=== PATIENT | male | born 1955 | race American Indian/Alaskan Native ===

== ENCOUNTER 2017-04-24 10:14 | Inpatient (IN) | payer MEDICAID ==
[2017-04-24] MEDS ORDERED: Ondansetron 4 MG/2 ML SDV IVPUSH ONE (10:46)
[2017-04-24] MEDS ORDERED: HYDROmorphone 0.5 MG/0.5 ML Syringe IVPUSH ONE (10:46)
[2017-04-24] MEDS ORDERED: Sodium Chloride 0.9% 1,000 ML IV SCH (11:00)
--- NOTE | 2017-04-24 11:31 | CR ---
Heart size within normal limits. Emphysematous change. No focal consolidation. Orogastric which are w ithin normal limits. Nodularity right apex likely is due to the right first rib and would recommend a lordotic view follow-up. This could be performed nonemergently. No dilated loops of large or small b owel. Moderate fecal residual.
[2017-04-24] MEDS ORDERED: HYDROmorphone 1 MG/ML Syringe IVPUSH ONE ×2 (12:21→13:18)
--- NOTE | 2017-04-24 12:29 | EDM.PDOC ---
ED HPI GENERAL MEDICAL PROBLEM - General Chief Complaint: Abdominal Pain Stated Complaint: ABDOMINAL PAIN VIA [facility] Time Seen by Provider: 04/24/17 10:30 Source of Information: Reports: Patient History Limitations: Reports: No Limitations - History of Present Illness INITIAL COMMENTS - FREE TEXT/NARRATIVE: Pt has marked upper abdomanal pain. He has been vomiting some. He had a risa about [address] [facility]. He had been having diarrhea, Onset: Gradual, Other (Pain is definitely worse today. ) Duration: Hour(s):, Getting Worse Location: Reports: Abdomen Associated Symptoms: Reports: Nausea/Vomiting Abdominal Pain Score (Numeric/FACES): 10 - Related Data Allergies Allergy/AdvReac Type Severity Reaction Status Date / Time lisinopril Allergy Cannot Verified 04/24/17 12:32 Remember Kbyxbjk-Wot-Rol Reductase Allergy Cannot Verified 04/24/17 14:39 Inhibitor Remember ibuprofen AdvReac Stomach Verified 04/24/17 10:28 Upset Home Meds: Home Meds Furosemide 40 mg PO DAILY 04/24/17 [History] Insulin Detemir [Levemir Flextouch] 5 units SUBCUT BEDTIME 04/24/17 [History] Metoprolol Tartrate 1 tab PO BID 04/24/17 [History] Nitroglycerin 1 tab SL ASDIRECTED 04/24/17 [History] Omeprazole 1 tab PO DAILY 04/24/17 [History] Simvastatin [Zocor] 10 mg PO BEDTIME 04/24/17 [History] HYDROmorphone [Dilaudid] 2 mg PO Q6H PRN #20 tablet 04/26/17 [Rx] Metoclopramide [Reglan] 5 mg PO TIDAC #90 tablet 04/26/17 [Rx] Past Medical History Gastrointestinal History: Reports: Gastritis Genitourinary History: Reports: Chronic Renal Insuffiency, Other (See Below) Other Genitourinary History: kidneys "work at 14%" Neurological History: Reports: Neuropathy, Diabetic Psychiatric History: Reports: Depression Endocrine/Metabolic History: Reports: Diabetes, Type I - Past Surgical History GI Surgical History: Reports: Cholecystectomy Social & Family History - Tobacco Use Smoking Status *Q: Light Tobacco Smoker Years of Tobacco use: 38 Packs/Tins Daily: 0.2 - Recreational Drug Use Recreational Drug Use: Yes Recreational Drug Type: Reports: Marijuana/Hashish Recreational Drug Use Frequency: Daily ED ROS GENERAL - Review of Systems Review Of Systems: See Below Constitutional: Reports: Decreased Appetite HEENT: Reports: No Symptoms Respiratory: Reports: No Symptoms Cardiovascular: Reports: No Symptoms Endocrine: Reports: No Symptoms GI/Abdominal: Reports: Abdominal Pain, Other (Pt is having severe upper abdomanal pain. ) : Reports: No Symptoms Musculoskeletal: Reports: No Symptoms Skin: Reports: No Symptoms Neurological: Reports: No Symptoms Psychiatric: Reports: Anxiety ED EXAM, GI/ABD - Physical Exam Exam: See Below Text/Narrative:: Pt is a very thin appearing pt who has severe uper abdomanal pain. He has been vomiting. He also has had diarrhea. He had a risa done in [place] 2 weeks ago. Exam Limited By: No Limitations General Appearance: Alert, Anxious, Severe Distress Eyes: Bilateral: Normal Appearance, EOMI Ears: Normal TMs Nose: Normal Inspection Throat/Mouth: Normal Inspection Head: Atraumatic Neck: Normal Inspection Respiratory/Chest: No Respiratory Distress Cardiovascular: Regular Rate, Rhythm GI/Abdominal Exam: Tender, Other (Pt has tenderness over his entire abdoman. He is having sevre abdomanal pain. ) (Male) Exam: Deferred Rectal (Males) Exam: Deferred Back Exam: Normal Inspection Extremities: Normal Inspection Neurological: Alert, Oriented, Normal Cognition Psychiatric: Anxious Course - Vital Signs Last Recorded V/S: Last Vital Signs Temp 37.1 C 04/26/17 07:12 Pulse 86 04/26/17 09:24 Resp 20 04/26/17 07:12 BP 150/84 H 04/26/17 09:24 Pulse Ox 96 04/26/17 07:12 - Orders/Labs/Meds Labs: Laboratory Tests 04/24/17 04/24/17 04/24/17 Range/Units 10:58 10:58 10:58 WBC 7.4 (4.5-11.0) K/uL RBC 2.99 L (4.30-5.90) M/uL Hgb 9.2 L (12.0-15.0) g/dL Hct 27.3 L (40.0-54.0) % MCV 91 (80-98) fL MCH 31 (27-31) pg MCHC 34 (32-36) % Plt Count 121 L (150-400) K/uL Neut % (Auto) 64 (36-66) % Lymph % (Auto) 26 (24-44) % [place] % (Auto) 7 H (2-6) % Eos % (Auto) 2 (2-4) % Baso % (Auto) 1 (0-1) % Sodium 142 (140-148) mmol/L Potassium 4.6 (3.6-5.2) mmol/L Chloride 113 H (100-108) mmol/L Carbon Dioxide 22 (21-32) mmol/L Anion Gap 11.6 (5.0-14.0) mmol/L BUN 41 H (7-18) mg/dL Creatinine 3.7 H* (0.8-1.3) mg/dL Est Cr Clr Drug Dosing 17.27 mL/min Estimated GFR (MDRD) 17 L (>60) Glucose 148 H (74-106) mg/dL Calcium 8.1 L (8.5-10.1) mg/dL Total Bilirubin 0.5 (0.2-1.0) mg/dL AST 21 (15-37) U/L ALT 17 (12-78) U/L Alkaline Phosphatase 69 (46-116) U/L C-Reactive Protein 0.20 (0.0-0.3) mg/dL Total Protein 6.0 L (6.4-8.2) g/dL Albumin 2.8 L (3.4-5.0) g/dL Globulin 3.2 (2.3-3.5) g/dL Albumin/Globulin Ratio 0.9 L (1.2-2.2) Amylase (25-115) U/L Lipase (73-393) U/L Urine Color Urine Appearance Urine pH (4.5-8.0) Ur Specific [place] (1.008-1.030) Urine Protein (NEGATIVE) mg/dL Urine Glucose (UA) (NEGATIVE) mg/dL Urine Ketones (NEGATIVE) mg/dL Urine Occult Blood (NEGATIVE) Urine Nitrite (NEGAITVE) Urine Bilirubin (NEGATIVE) Urine Urobilinogen (NORMAL) mg/dL Ur Leukocyte Esterase (NEGATIVE) Urine RBC (0-5) Urine WBC (0-5) Ur Epithelial Cells Amorphous Sediment Urine Bacteria Urine Mucus 04/24/17 04/24/17 04/24/17 Range/Units 10:58 10:58 12:26 WBC (4.5-11.0) K/uL RBC (4.30-5.90) M/uL Hgb (12.0-15.0) g/dL Hct (40.0-54.0) % MCV (80-98) fL MCH (27-31) pg MCHC (32-36) % Plt Count (150-400) K/uL Neut % (Auto) (36-66) % Lymph % (Auto) (24-44) % [place] % (Auto) (2-6) % Eos % (Auto) (2-4) % Baso % (Auto) (0-1) % Sodium (140-148) mmol/L Potassium (3.6-5.2) mmol/L Chloride (100-108) mmol/L Carbon Dioxide (21-32) mmol/L Anion Gap (5.0-14.0) mmol/L BUN (7-18) mg/dL Creatinine (0.8-1.3) mg/dL Est Cr Clr Drug Dosing mL/min Estimated GFR (MDRD) (>60) Glucose (74-106) mg/dL Calcium (8.5-10.1) mg/dL Total Bilirubin (0.2-1.0) mg/dL AST (15-37) U/L ALT (12-78) U/L Alkaline Phosphatase (46-116) U/L C-Reactive Protein (0.0-0.3) mg/dL Total Protein (6.4-8.2) g/dL Albumin (3.4-5.0) g/dL Globulin (2.3-3.5) g/dL Albumin/Globulin Ratio (1.2-2.2) Amylase 179 H (25-115) U/L Lipase 983 H (73-393) U/L Urine Color Yellow Urine Appearance Clear Urine pH 6.5 (4.5-8.0) Ur Specific [place] 1.010 (1.008-1.030) Urine Protein 500 H (NEGATIVE) mg/dL Urine Glucose (UA) 100 H (NEGATIVE) mg/dL Urine Ketones Negative (NEGATIVE) mg/dL Urine Occult Blood Large (NEGATIVE) Urine Nitrite Negative (NEGAITVE) Urine Bilirubin Negative (NEGATIVE) Urine Urobilinogen Normal (NORMAL) mg/dL Ur Leukocyte Esterase Negative (NEGATIVE) Urine RBC 30-40 H (0-5) Urine WBC 0-5 (0-5) Ur Epithelial Cells Rare Amorphous Sediment Not seen Urine Bacteria Not seen Urine Mucus Not seen Meds: Medications Discontinued Medications Generic Name Dose Route Start Last Admin Trade Name Freq PRN Reason Stop Dose Admin Acetaminophen 650 mg 04/24/17 14:08 Tylenol PO Q4H PRN Pain (Mild 1-3)/fever Albuterol 2.5 mg 04/24/17 14:08 Proventil Neb Soln NEB Q4H PRN Shortness Of Breath/wheezing Amlodipine Besylate 5 mg 04/26/17 09:00 04/26/17 09:22 Norvasc PO 5 mg DAILY YANN Administration Dextrose 15 gm 04/24/17 14:08 Glutose 15 PO ONETIME PRN Hypoglycemia Dextrose/Water 50 ml 04/24/17 14:08 Dextrose 50% In Water IV ONETIME PRN Hypoglycemia Hydromorphone HCl 0.5 mg 04/24/17 10:46 04/24/17 12:14 Dilaudid IVPUSH 04/24/17 10:47 0.5 mg ONETIME ONE Administration Hydromorphone HCl 1 mg 04/24/17 12:21 04/24/17 12:59 Dilaudid IVPUSH 04/24/17 12:22 1 mg ONETIME ONE Administration Hydromorphone HCl 1 mg 04/24/17 13:18 04/24/17 13:25 Dilaudid IVPUSH 04/24/17 13:19 1 mg ONETIME ONE Administration Hydromorphone HCl 0 mg 04/24/17 14:08 04/24/17 15:25 Dilaudid Seo Expert 15 Mg In Ns 30 Ml IV 15 mg ASDIRECTED PRN Administration Pain Protocol Hydromorphone HCl 2 mg 04/25/17 10:09 04/26/17 11:07 Dilaudid PO 2 mg Q3H PRN Administration Pain Hydromorphone HCl 0.5 - 1 mg 04/25/17 15:32 04/25/17 18:31 Dilaudid IVPUSH 1 mg Q2H PRN Administration Pain (severe 7-10) Sodium Chloride 1,000 mls @ 500 mls/hr 04/24/17 11:00 04/24/17 12:03 Normal Saline IV 500 mls/hr ASDIRECTED YANN Administration Lactated Ringer's 500 mls @ 250 mls/hr 04/24/17 14:08 Ringers, Lactated IV 04/24/17 18:09 .BOLUS YANN Lactated Ringer's 1,000 mls @ 125 mls/hr 04/24/17 16:45 04/25/17 05:27 Ringers, Lactated IV 125 mls/hr ASDIRECTED YANN Administration Dextrose/Lactated Ringer's 1,000 mls @ 75 mls/hr 04/25/17 08:30 04/25/17 10: 07 Dextrose 5%-Lactated Ringers IV 75 mls/hr ASDIRECTED YANN Administration Ciprofloxacin/Dextrose 400 mg/ 200 mls @ 200 mls/hr 04/25/17 10:00 04/26/17 09:25 Premix IV 200 mls/hr Q24H YANN Administration Insulin Aspart 0 unit 04/24/17 17:00 04/26/17 12:14 Novolog SUBCUT Not Given QIDACANDBED YANN Protocol Insulin Detemir 5 unit 04/24/17 21:00 04/25/17 21:02 Levemir SUBCUT 5 units BEDTIME YANN Administration Labetalol HCl 20 mg 04/24/17 13:26 04/24/17 13:34 Normodyne IVPUSH 04/24/17 13:27 20 mg NOW ONE Administration Protocol Lorazepam 0.5 mg 04/24/17 13:20 04/24/17 13:26 Ativan IVPUSH 04/24/17 13:21 0.5 mg ONETIME ONE Administration Lorazepam 0.5 mg 04/25/17 10:10 Ativan IVPUSH Q4H PRN Nausea Metoclopramide HCl 5 mg 04/25/17 11:00 04/26/17 12:15 Reglan PO 5 mg TIDAC YANN Administration Metoprolol Tartrate 25 mg 04/24/17 14:08 04/26/17 09:24 Lopressor PO 25 mg BID YANN Administration Naloxone HCl 0.4 mg 04/24/17 14:08 Narcan IVPUSH Q2M PRN Respiratory Distress Nitroglycerin 0.4 mg 04/24/17 14:08 Nitrostat SL ASDIRECTED PRN Chest Pain Ondansetron HCl 4 mg 04/24/17 10:46 04/24/17 12:12 Zofran IVPUSH 04/24/17 10:47 4 mg ONETIME ONE Administration Ondansetron HCl 4 mg 04/24/17 14:08 04/26/17 01:10 Zofran IV 4 mg Q4H PRN Administration Nausea/Vomiting Pantoprazole Sodium 40 mg 04/24/17 16:00 04/24/17 16:22 Protonix Iv IVPUSH 40 mg Q24H YANN Administration Pantoprazole Sodium 40 mg 04/26/17 07:30 04/26/17 07:27 Protonix PO 40 mg ACBREAKFAST YANN Administration Simvastatin 10 mg 04/24/17 21:00 04/25/17 21:03 Zocor PO 10 mg BEDTIME YANN Administration Sodium Chloride 10 ml 04/24/17 14:08 04/25/17 16:46 Saline Flush FLUSH 10 ml ASDIRECTED PRN Administration Keep Vein Open - Re-Assessments/Exams Free Text/Narrative Re-Assessment/Exam: 04/24/17 12:31 Pt was found to have a elevated lipase. He has a mild elevation in his wbc. He is anemic. 04/24/17 12:32 pt will have a cat scan of the abdoman. Departure - Departure Time of Disposition: 09:30 Disposition: Admitted As Inpatient 65 Clinical Impression: Dehydration, Anemia, Pancreatitis - Discharge Information
--- NOTE | 2017-04-24 12:40 | PCM.HP ---
H&P History of Present Illness - General Date of Service: 04/24/17 Admit Problem/Dx: Source of Information: Patient, Provider, RN Notes Reviewed History Limitations: Reports: No Limitations - History of Present Illness Initial Comments - Free Text/Narative: Mr. Stephenson is a 61-year-old gentleman who is admitted through the emergency department with symptoms of upper abdominal pain, nausea, vomiting and weakness secondary to acute pancreatitis. He did undergo a laparoscopic cholecystectomy approximately 3 weeks ago and felt better until 3 days ago when he developed symptoms as noted above. Liver enzymes are within normal range, white blood cell count is normal, and he denies alcohol use. CT scan of the abdomen shows evidence of mesenteric edema as well as some body wall edema, no other significant abnormalities. Lipase level is mildly to moderately elevated consistent with pancreatitis. Abdominal Pain Score (Numeric/FACES): 10 - Related Data Allergies/Adverse Reactions: Allergies Allergy/AdvReac Type Severity Reaction Status Date / Time lisinopril Allergy Cannot Verified 04/24/17 12:32 Remember Tscxgnl-Yil-Qnm Reductase Allergy Cannot Verified 04/24/17 14:39 Inhibitor Remember ibuprofen AdvReac Stomach Verified 04/24/17 10:28 Upset Home Medications: Home Meds Furosemide [Furosemide] 40 mg PO DAILY 04/24/17 [History] Insulin Detemir [Levemir Flextouch] 5 units SUBCUT BEDTIME 04/24/17 [History] Metoprolol Tartrate 1 tab PO BID 04/24/17 [History] Nitroglycerin [Nitroglycerin] 1 tab SL ASDIRECTED 04/24/17 [History] Omeprazole 1 tab PO DAILY 04/24/17 [History] Simvastatin [Zocor] 10 mg PO BEDTIME 04/24/17 [History] Past Medical History Cardiovascular History: Reports: High Cholesterol, Hypertension Gastrointestinal History: Reports: Gastritis Genitourinary History: Reports: Chronic Renal Insuffiency, Other (See Below) Other Genitourinary History: kidneys "work at 14%" Neurological History: Reports: Neuropathy, Diabetic Psychiatric History: Reports: Depression Endocrine/Metabolic History: Reports: Diabetes, Type I - Past Surgical History GI Surgical History: Reports: Cholecystectomy Social & Family History - Tobacco Use Smoking Status *Q: Light Tobacco Smoker Years of Tobacco use: 38 Packs/Tins Daily: 0.2 - Recreational Drug Use Recreational Drug Use: Yes Recreational Drug Type: Reports: Marijuana/Hashish Recreational Drug Use Frequency: Daily H&P Review of Systems - Review of Systems: Review Of Systems: See Below General: Reports: Weakness, Decreased Appetite. Denies: Fever, Chills, Diaphoresis HEENT: Reports: No Symptoms Pulmonary: Reports: No Symptoms Cardiovascular: Reports: No Symptoms Gastrointestinal: Reports: Abdominal Pain, Anorexia, Diarrhea, Distension, Nausea, Vomiting. Denies: Black Stool, Bloody Stool, Constipation, Difficulty Swallowing Genitourinary: Reports: No Symptoms Musculoskeletal: Reports: No Symptoms Skin: Reports: No Symptoms Psychiatric: Reports: No Symptoms Neurological: Reports: No Symptoms Hematologic/Lymphatic: Reports: No Symptoms Immunologic: Reports: No Symptoms Exam - Exam Exam: See Below - Vital Signs Vital Signs: Last Vital Signs Temp 97.2 F 04/24/17 10:26 Pulse 78 04/24/17 12:13 Resp 18 04/24/17 12:13 BP 215/107 H 04/24/17 12:13 Pulse Ox 100 04/24/17 12:13 Weight: 130 lb - Exam Quality Assessment: DVT Prophylaxis General: Alert, Oriented, Cooperative, Mild Distress HEENT: Conjunctiva Clear, Hearing Intact, Normal Nasal Septum, Posterior Pharynx Clear, Pupils Equal. No: Mucosa Moist & [place] Neck: Supple, Trachea Midline, +2 Carotid Pulse wo Bruit Lungs: Clear to Auscultation, Normal Respiratory Effort Cardiovascular: Regular Rate, Regular Rhythm, Normal S1, Normal S2 GI/Abdominal Exam: Soft, Non-Tender, No Organomegaly, No Distention Back Exam: Normal Inspection, Full Range of Motion Extremities: Non-Tender, No Pedal Edema Skin: Warm, Dry, Intact Neurological: Cranial Nerves Intact, Strength Equal Bilateral, Normal Speech, Normal Tone, Sensation Intact. No: Focal Deficit Neuro Extensive - Mental Status: Alert, Oriented x3, Normal Mood/Affect, Normal Cognition, Memory Intact - Patient Data Lab Results Last 24 hrs: Laboratory Results - last 24 hr 04/24/17 04/24/17 04/24/17 Range/Units 10:58 10:58 10:58 WBC 7.4 (4.5-11.0) K/uL RBC 2.99 L (4.30-5.90) M/uL Hgb 9.2 L (12.0-15.0) g/dL Hct 27.3 L (40.0-54.0) % MCV 91 (80-98) fL MCH 31 (27-31) pg MCHC 34 (32-36) % Plt Count 121 L (150-400) K/uL Neut % (Auto) 64 (36-66) % Lymph % (Auto) 26 (24-44) % [place] % (Auto) 7 H (2-6) % Eos % (Auto) 2 (2-4) % Baso % (Auto) 1 (0-1) % Sodium 142 (140-148) mmol/L Potassium 4.6 (3.6-5.2) mmol/L Chloride 113 H (100-108) mmol/L Carbon Dioxide 22 (21-32) mmol/L Anion Gap 11.6 (5.0-14.0) mmol/L BUN 41 H (7-18) mg/dL Creatinine 3.7 H* (0.8-1.3) mg/dL Est Cr Clr Drug Dosing 17.27 mL/min Estimated GFR (MDRD) 17 L (>60) Glucose 148 H (74-106) mg/dL Calcium 8.1 L (8.5-10.1) mg/dL Total Bilirubin 0.5 (0.2-1.0) mg/dL AST 21 (15-37) U/L ALT 17 (12-78) U/L Alkaline Phosphatase 69 (46-116) U/L C-Reactive Protein 0.20 (0.0-0.3) mg/dL Total Protein 6.0 L (6.4-8.2) g/dL Albumin 2.8 L (3.4-5.0) g/dL Globulin 3.2 (2.3-3.5) g/dL Albumin/Globulin Ratio 0.9 L (1.2-2.2) Amylase (25-115) U/L Lipase (73-393) U/L 18 04/24/17 Range/Units 10:58 10:58 WBC (4.5-11.0) K/uL RBC (4.30-5.90) M/uL Hgb (12.0-15.0) g/dL Hct (40.0-54.0) % MCV (80-98) fL MCH (27-31) pg MCHC (32-36) % Plt Count (150-400) K/uL Neut % (Auto) (36-66) % Lymph % (Auto) (24-44) % [place] % (Auto) (2-6) % Eos % (Auto) (2-4) % Baso % (Auto) (0-1) % Sodium (140-148) mmol/L Potassium (3.6-5.2) mmol/L Chloride (100-108) mmol/L Carbon Dioxide (21-32) mmol/L Anion Gap (5.0-14.0) mmol/L BUN (7-18) mg/dL Creatinine (0.8-1.3) mg/dL Est Cr Clr Drug Dosing mL/min Estimated GFR (MDRD) (>60) Glucose (74-106) mg/dL Calcium (8.5-10.1) mg/dL Total Bilirubin (0.2-1.0) mg/dL AST (15-37) U/L ALT (12-78) U/L Alkaline Phosphatase (46-116) U/L C-Reactive Protein (0.0-0.3) mg/dL Total Protein (6.4-8.2) g/dL Albumin (3.4-5.0) g/dL Globulin (2.3-3.5) g/dL Albumin/Globulin Ratio (1.2-2.2) Amylase 179 H (25-115) U/L Lipase 983 H (73-393) U/L Result Diagrams: 04/24/17 10:58 04/24/17 10:58 *Q Meaningful Use (ADM) - VTE *Q VTE Criteria *Q: - VTE Risk Assess *Q Each Risk Factor Represents 1 Point: Swollen Legs, Current Total Score 1 Point Risk Factors: 1 Each Risk Factor Represents 2 Points: Age 60 - 74 Years Total Score 2 Point Risk Factors: 2 Each Risk Factor Represents 3 Points: None Total Score 3 Point Risk Factors: 0 Each Risk Factor Represents 5 Points: None Total Score 5 Point Risk Factors: 0 Venous Thromboembolism Risk Factor Score *Q: 3 - Stroke *Q Stroke Criteria *Q: - AMI *Q AMI Criteria *Q: Problem List Initiated/Reviewed/Updated: Yes Orders Last 24hrs: Active Orders 24 hr Category Date Time Status Patient Status Manage Transfer [TRANSFER] Routine ADT 04/24/17 12:31 Ordered Abdomen Pelvis wo Cont [CT] Stat Exams 04/24/17 11:36 Ordered UA W/MICROSCOPIC [URIN] Urgent Lab 04/24/17 12:26 Ordered Sodium Chloride 0.9% [Normal Saline] 1,000 ml Med 04/24/17 11:00 Active IV ASDIRECTED Resuscitation Status Routine Resus Stat 04/24/17 12:33 Ordered Medication Orders Sodium Chloride (Normal Saline) 1,000 mls @ 500 mls/hr IV ASDIRECTED YANN Last Admin: 04/24/17 12:03 Dose: 500 mls/hr Assessment/Plan Comment:: ASSESSMENT AND PLAN PANCREATITIS-specific etiology not apparent. Strongly denies alcohol use and reports that he has not used alcohol for several years. He did recently undergo a laparoscopic cholecystectomy, liver enzymes are within normal range making common duct stone less likely. Medications reviewed and no obvious potential causes of pancreatitis noted with current outpatient medical regimen. -Nothing by mouth -Pain and anti-medic therapy as needed -IV fluids for hydration -Repeat lipase level in a.m. CHRONIC KIDNEY DISEASE STAGE IV -Closely monitor urine output and renal function TYPE 1 DIABETES MELLITUS -Continue outpatient dose of long-acting insulin -4 times a day glucometers -Low-dose sliding scale NovoLog MAINTENANCE ISSUES -DVT prophylaxis; SCUDs -GI prophylaxis; Protonix 40 mg IV daily -Owen catheter; not indicated -Nutrition; nothing by mouth -Nicotine dependence; not required CODE STATUS-FULL CODE ADMISSION STATUS-patient will be admitted to inpatient status, expect at least a 2 night hospital stay for evaluation and management of problems as outlined above. At the time of this admission I do not reasonably expected evaluation and management of this problem will require more than a 96 hour hospital stay. DISPOSITION-anticipate discharge to home after the hospital stay.
[2017-04-24] MEDS ORDERED: LORazepam 2 MG/ML MDV IVPUSH ONE (13:20)
[2017-04-24] MEDS ORDERED: Labetalol 20 MG/4 ML Syringe IVPUSH ONE (13:26)
--- NOTE | 2017-04-24 13:29 | CT ---
CT abdomen and pelvis Total DLP 419. Indication: Upper abdominal pain. Findings: Emphysematous changes. No focal consolidation. Liver within normal limits. Prior cholecyste ctomy change. Pancreas within normal limits. No focal fluid collection about it. Mild adrenal gland t hickening. Spleen within normal limits. There is body wall edema and mild diffuse mesenteric edema. L arge amount of fecal residual. Terminal ileum within normal limits. Normal appendix. Diffuse bladder wall thickening. Mild prostatomegaly. Atherosclerotic nonaneurysmal aorta. Perinephric fat stranding bilaterally. No hydronephrosis. Air-fluid level within the stomach. No free air. Old left anterior ri b fracture. Nonobstructing stones within the left kidney. Impression: 1. No evidence for obstruction or hydronephrosis. 2. Nonspecific body wall and mesenteric edema. 3. No dilated loops of large or small bowel.
[2017-04-24] MEDS ORDERED: Lactated Ringers 500 ML IV SCH (14:08)
[2017-04-24] MEDS ORDERED: Nitroglycerin 0.4 MG Tab.SL SL PRN (14:08)
[2017-04-24] MEDS ORDERED: HYDROmorphone/Normal Saline 15 MG/30 ML PCA IV PRN (14:08)
[2017-04-24] MEDS ORDERED: Albuterol 0.083% 2.5 MG/3 ML Neb Soln NEB PRN (14:08)
[2017-04-24] MEDS ORDERED: Acetaminophen 325 MG Tab PO PRN (14:08)
[2017-04-24] MEDS ORDERED: Glucose Gel 15 GM in 37.5 GM Tube PO PRN (14:08)
[2017-04-24] MEDS ORDERED: Naloxone 0.4 MG/ML SDV IVPUSH PRN (14:08)
[2017-04-24] MEDS ORDERED: Sodium Chloride 0.9% 10 ML Syringe FLUSH PRN (14:08)
[2017-04-24] MEDS ORDERED: 50% Dextrose in Water 50 ML Syringe IV PRN (14:08)
[2017-04-24] MEDS ORDERED: Pantoprazole 40 MG Vial IVPUSH SCH (16:00)
[2017-04-24] MEDS: Metoprolol Tartrate 25 MG Tab PO SCH ×2 (16:21→21:25)
[2017-04-24] MEDS: Insulin Aspart 100 Units/ML 3 ML Pen SUBCUT SCH ×2 (16:57→21:24)
[2017-04-24] MEDS: Insulin Detemir 100 Units/ML 3 ML Pen SUBCUT SCH (21:24)
[2017-04-24] MEDS: Simvastatin 20 MG Tab PO SCH (21:26)
[2017-04-24] MEDS: Ondansetron 4 MG/2 ML SDV IV PRN (21:33)
[2017-04-24] MEDS: Lactated Ringers 1,000 ML IV SCH (22:02)
[2017-04-25] MEDS: Ondansetron 4 MG/2 ML SDV IV PRN ×3 (01:44→19:37)
[2017-04-25] MEDS: Lactated Ringers 1,000 ML IV SCH (05:27)
[2017-04-25] MEDS: Insulin Aspart 100 Units/ML 3 ML Pen SUBCUT SCH ×4 (07:57→21:01)
[2017-04-25] MEDS: Metoprolol Tartrate 25 MG Tab PO SCH ×2 (08:28→21:04)
[2017-04-25] MEDS ORDERED: Dextrose 5%-Lactated Ringers 1,000 ML IV SCH (08:30)
[2017-04-25] MEDS ORDERED: LORazepam 2 MG/ML MDV IVPUSH PRN (10:10)
--- NOTE | 2017-04-25 10:12 | PCM.PN ---
- General Info Date of Service: 04/25/17 Functional Status: Denies: Pain Controlled - Review of Systems General: Denies: Fever Gastrointestinal: Reports: Abdominal Pain, Nausea. Denies: Diarrhea Systems Review Comment:: Stefany reports that his pain has not been well controlled overnight but he has not been using much in the way of his C ARCHITECT. He reports that his pain was 10 out of 10 this morning and the nursing staff reported that he was crying his pain was so severe. He has nausea but has not had vomiting. He reports that he is hungry and would very much like something to drink at least. He has not had any fevers. His lipase level is normal. I did review his [facility] records and he has been dealing with a similar pain for at least a couple of months. He has had extensive workup as well as a cholecystectomy and gastroenterology evaluation with no obvious cause for his pain found. He has had upper endoscopy as recently as early March of this year. - Patient Data Vitals - Most Recent: Last Vital Signs Temp 36.6 C 04/25/17 07:08 Pulse 72 04/25/17 08:28 Resp 8 L 04/25/17 07:08 BP 177/70 H 04/25/17 08:28 Pulse Ox 93 L 04/25/17 07:09 Weight - Most Recent: 57.243 kg I&O - Last 24 Hours: Intake & Output 04/24/17 04/25/17 04/25/17 22:59 06:59 14:59 Intake Total 573 1337 Output Total 250 Balance 323 1337 Lab Results Last 24 Hours: Laboratory Results - last 24 hr 04/25/17 04/25/17 04/25/17 Range/Units 05:55 05:55 05:55 WBC 8.6 (4.5-11.0) K/uL RBC 2.80 L (4.30-5.90) M/uL Hgb 8.8 L (12.0-15.0) g/dL Hct 26.2 L (40.0-54.0) % MCV 94 (80-98) fL MCH 31 (27-31) pg MCHC 34 (32-36) % Plt Count 111 L (150-400) K/uL Neut % (Auto) 57 (36-66) % Lymph % (Auto) 31 (24-44) % [place] % (Auto) 8 H (2-6) % Eos % (Auto) 3 (2-4) % Baso % (Auto) 1 (0-1) % Sodium 144 (140-148) mmol/L Potassium 5.0 (3.6-5.2) mmol/L Chloride 114 H (100-108) mmol/L Carbon Dioxide 21 (21-32) mmol/L Anion Gap 14.0 (5.0-14.0) mmol/L BUN 36 H (7-18) mg/dL Creatinine 3.6 H* (0.8-1.3) mg/dL Est Cr Clr Drug Dosing 17.23 mL/min Estimated GFR (MDRD) 17 L (>60) Glucose 79 (74-106) mg/dL Calcium 7.9 L (8.5-10.1) mg/dL Magnesium 2.2 (1.8-2.4) mg/dL Total Bilirubin 0.4 (0.2-1.0) mg/dL AST 26 (15-37) U/L ALT 17 (12-78) U/L Alkaline Phosphatase 69 (46-116) U/L Total Protein 6.0 L (6.4-8.2) g/dL Albumin 2.9 L (3.4-5.0) g/dL Globulin 3.1 (2.3-3.5) g/dL Albumin/Globulin Ratio 0.9 L (1.2-2.2) Lipase 199 (73-393) U/L Med Orders - Current: Current Medications Acetaminophen (Tylenol) 650 mg PO Q4H PRN PRN Reason: Pain (Mild 1-3)/fever Albuterol (Proventil Neb Soln) 2.5 mg NEB Q4H PRN PRN Reason: Shortness Of Breath/wheezing Dextrose (Glutose 15) 15 gm PO ONETIME PRN PRN Reason: Hypoglycemia Dextrose/Water (Dextrose 50% In Water) 50 ml IV ONETIME PRN PRN Reason: Hypoglycemia Hydromorphone HCl (Dilaudid Freight Rate Analyst 15 Mg In Ns 30 Ml) 0 mg IV ASDIRECTED PRN; Protocol PRN Reason: Pain Last Admin: 04/24/17 15:25 Dose: 15 mg Dextrose/Lactated Ringer's (Dextrose 5%-Lactated Ringers) 1,000 mls @ 75 mls/ hr IV ASDIRECTED [facility] Last Admin: 04/25/17 10:07 Dose: 75 mls/hr Insulin Aspart (Novolog) 0 unit SUBCUT QIDACANDBED [facility] PRN Reason: Protocol Last Admin: 04/25/17 07:57 Dose: Not Given Insulin Detemir (Levemir) 5 unit SUBCUT BEDTIME [facility] Last Admin: 04/24/17 21:24 Dose: 5 units Metoprolol Tartrate (Lopressor) 25 mg PO BID [facility] Last Admin: 04/25/17 08:28 Dose: 25 mg Naloxone HCl (Narcan) 0.4 mg IVPUSH Q2M PRN PRN Reason: Respiratory Distress Nitroglycerin (Nitrostat) 0.4 mg SL ASDIRECTED PRN PRN Reason: Chest Pain Ondansetron HCl (Zofran) 4 mg IV Q4H PRN PRN Reason: Nausea/Vomiting Last Admin: 04/25/17 01:44 Dose: 4 mg Pantoprazole Sodium (Protonix Iv) 40 mg IVPUSH Q24H [facility] Last Admin: 04/24/17 16:22 Dose: 40 mg Simvastatin (Zocor) 10 mg PO BEDTIME [facility] Last Admin: 04/24/17 21:26 Dose: 10 mg Sodium Chloride (Saline Flush) 10 ml FLUSH ASDIRECTED PRN PRN Reason: Keep Vein Open Discontinued Medications Hydromorphone HCl (Dilaudid) 0.5 mg IVPUSH ONETIME ONE Stop: 04/24/17 10:47 Last Admin: 04/24/17 12:14 Dose: 0.5 mg Hydromorphone HCl (Dilaudid) 1 mg IVPUSH ONETIME ONE Stop: 04/24/17 12:22 Last Admin: 04/24/17 12:59 Dose: 1 mg Hydromorphone HCl (Dilaudid) 1 mg IVPUSH ONETIME ONE Stop: 04/24/17 13:19 Last Admin: 04/24/17 13:25 Dose: 1 mg Sodium Chloride (Normal Saline) 1,000 mls @ 500 mls/hr IV ASDIRECTED [facility] Last Admin: 04/24/17 12:03 Dose: 500 mls/hr Lactated Ringer's (Ringers, Lactated) 500 mls @ 250 mls/hr IV .BOLUS [facility] Stop: 04/24/17 18:09 Lactated Ringer's (Ringers, Lactated) 1,000 mls @ 125 mls/hr IV ASDIRECTED [facility] Last Admin: 04/25/17 05:27 Dose: 125 mls/hr Labetalol HCl (Normodyne) 20 mg IVPUSH NOW ONE PRN Reason: Protocol Stop: 04/24/17 13:27 Last Admin: 04/24/17 13:34 Dose: 20 mg Lorazepam (Ativan) 0.5 mg IVPUSH ONETIME ONE Stop: 04/24/17 13:21 Last Admin: 04/24/17 13:26 Dose: 0.5 mg Ondansetron HCl (Zofran) 4 mg IVPUSH ONETIME ONE Stop: 04/24/17 10:47 Last Admin: 04/24/17 12:12 Dose: 4 mg - Exam Quality Assessment: No: Supplemental Oxygen General: Alert, Oriented, Cooperative, Mild Distress Neck: Supple Lungs: Normal Respiratory Effort GI/Abdominal Exam: Normal Bowel Sounds, Soft, No Distention, Tender Skin: Warm, Dry Psy/Mental Status: Alert, Normal Affect - Problem List Review Problem List Initiated/Reviewed/Updated: Yes - My Orders Last 24 Hours: My Active Orders 04/25/17 08:30 Dextrose 5%-Lactated Ringers 1,000 ml IV ASDIRECTED 04/25/17 10:09 HYDROmorphone [Dilaudid] 2 mg PO Q3H PRN 04/25/17 10:10 TROPONIN I [CHEM] Routine LORazepam [Ativan] 0.5 mg IVPUSH Q4H PRN 04/25/17 10:15 Ciprofloxacin in D5W [Cipro in D5W 400 MG/200 ML] 400 mg Premix Bag 1 bag IV Q24H 04/25/17 Lunch Clear Liquid Diet [DIET] - Plan Plan:: ASSESSMENT AND PLAN Acute on chronic epigastric abdominal pain - pancreatitis was suspected with mild elevation in his lipase but CT did not confirm pancreatitis. Lipase level has normalized and he has ongoing fairly severe pain. Previous workup has included upper endoscopy which did not show acute pathology, cholecystectomy which has not relieved symptoms as well as gastroenterology referral which did not definitively determine a cause for his pain. With long-standing diabetes gastroparesis could be considered. Anti-spasmodics could be considered based on his pain description. -Trial of clear liquids -Pain control -Trial of metoclopramide -Consider trial of anti-spasmodic -IV fluids for hydration -Repeat lipase level in a.m. CHRONIC KIDNEY DISEASE STAGE IV - Kidney function stable over the past month. He has had recent nephrology follow-up and renal biopsy was planned but he missed his appointment. -Closely monitor urine output and renal function -Patient will need to reschedule his outpatient renal biopsy appointment TYPE 1 DIABETES MELLITUS - complicated by neuropathy and likely nephropathy. sugar a little bit on the low side and dextrose-containing fluids will be initiated this morning. -Continue outpatient dose of long-acting insulin -4 times a day glucometers -Low-dose sliding scale NovoLog MAINTENANCE ISSUES -DVT prophylaxis; SCUDs -GI prophylaxis; Protonix 40 mg IV daily -Owen catheter; not indicated -Nutrition; trial of clear liquids DISPOSITION-anticipate discharge to home after the hospital stay. Dequan Barrow M.D.
[2017-04-25] MEDS: HYDROmorphone 2 MG Tab PO PRN ×3 (11:41→20:23)
[2017-04-25] MEDS: Ciprofloxacin in D5W 400 MG in Premix Bag 1 BAG IV SCH ×2 (11:43)
[2017-04-25] MEDS: Metoclopramide 5 MG Tab PO SCH ×2 (11:59→16:25)
[2017-04-25] MEDS ORDERED: HYDROmorphone 0.5 MG/0.5 ML Syringe IVPUSH PRN (15:32)
[2017-04-25] MEDS: Insulin Detemir 100 Units/ML 3 ML Pen SUBCUT SCH (21:02)
[2017-04-25] MEDS: Simvastatin 20 MG Tab PO SCH (21:03)
[2017-04-26] MEDS: HYDROmorphone 2 MG Tab PO PRN ×3 (01:08→11:07)
[2017-04-26] MEDS: Ondansetron 4 MG/2 ML SDV IV PRN (01:10)
[2017-04-26] MEDS: Metoclopramide 5 MG Tab PO SCH ×2 (07:28→12:15)
[2017-04-26] MEDS ORDERED: Pantoprazole 40 MG Tab.CR PO SCH (07:30)
[2017-04-26] MEDS: Insulin Aspart 100 Units/ML 3 ML Pen SUBCUT SCH ×2 (08:14→12:14)
[2017-04-26] MEDS ORDERED: amLODIPine 5 MG Tab PO SCH (09:00)
[2017-04-26] MEDS: Metoprolol Tartrate 25 MG Tab PO SCH (09:24)
[2017-04-26] MEDS: Ciprofloxacin in D5W 400 MG in Premix Bag 1 BAG IV SCH ×2 (09:25)
--- NOTE | 2017-04-26 13:10 | PCM.DCSUM1 ---
Discharge Summary - Hospital Course Brief History: 61-year-old male with insulin-dependent diabetes mellitus, stage IV kidney disease and recent cholecystectomy who presented with recurrent epigastric abdominal pain and nausea. He was admitted for management of suspected pancreatitis. - Discharge Data Discharge Date: 04/26/17 Discharge Disposition: Home, Self-Care 01 Condition: Fair - Discharge Diagnosis/Problem(s) (1) Diabetic gastroparesis SNOMED Code(s): 260348539 ICD Code: E11.43 - TYPE 2 DIABETES W DIABETIC AUTONOMIC (POLY)NEUROPATHY; K31.84 - GASTROPARESIS Status: Chronic Current Visit: Yes (2) Abdominal pain SNOMED Code(s): 35084934 ICD Code: R10.9 - UNSPECIFIED ABDOMINAL PAIN Status: Acute Current Visit : Yes Qualifiers: Abdominal location: epigastric Qualified Code(s): R10.13 - Epigastric pain (3) Diabetes mellitus, insulin dependent (IDDM), controlled SNOMED Code(s): 40405560 ICD Code: E11.9 - TYPE 2 DIABETES MELLITUS WITHOUT COMPLICATIONS; Z79.4 - COLLAR STARCHER (CURRENT) USE OF INSULIN Status: Chronic Current Visit: Yes (4) Chronic kidney disease, stage IV (severe) SNOMED Code(s): 559321806 ICD Code: N18.4 - CHRONIC KIDNEY DISEASE, STAGE 4 (SEVERE) Status: Chronic Current Visit: Yes - Patient Summary/Data Consults: Consultations 04/26/17 09:23 Consult to Dietary [Consult to Receiver] [CONS] Routine Comment: Physician Instructions: Quantity: Reason for Consult: suspect gastroparesis Special Instructions: GI soft low residue diet Hospital Course: Donte presented to the emergency room with recurrent epigastric abdominal pain and nausea. He reported that he had recently had his gallbladder removed to treat similar pain but had persistent symptoms. Workup in the emergency room revealed an elevated lipase on laboratory testing. CT scan did not show any inflammation of the pancreas or surrounding structures. Also noted on laboratory testing was a creatinine of 3.7. He was admitted to the hospital for management of suspected acute pancreatitis. He was treated with pain medication and IV fluids and nothing by mouth status. By the morning after admission his lipase level had normalized. He was still having a fair amount of difficulty with epigastric abdominal pain and nausea but had an appetite. Further discussions about his pain revealed that food seemed to be a large trigger for his symptoms. I also reviewed his medical record from [facility] and found that he 's been having similar pains for a couple of months or more. He has had an extensive workup and also had a cholecystectomy. I became suspicious for gastroparesis and initiated metoclopramide. We were able to advance his diet from clear liquids to full liquids and then to a low residual diet. Symptoms have improved throughout the course of the hospital stay. His pain has not completely resolved but has improved fair amount. He has tolerated meals today with no significant nausea or increase in his pain. Pain has been well- controlled utilizing only oral medications on occasion. He is feeling fair amount better at this point and is interested in going home. I did send him home with a prescription for metoclopramide as well as a limited number of pain pills. He will be following up with his primary care provider to ensure that symptoms have continued to improve. At the beginning of the hospital stay he was empirically started on antibiotics to cover enteric pathogens as well as potential urinary pathogens. There has been no strong evidence for infection and antibiotics will be discontinued after the hospital stay. Antibiotics were covered with some mesenteric edema noted as well as the thickening of the urinary bladder. Also during the hospital stay he was noted to have moderate elevation of his blood pressures. He reports that they've been under good control recently and have trended down. I'm not going to adjust blood pressure medications at this time but did encourage him to follow-up for a blood pressure check. He did also have a low blood sugar the morning prior to discharge this responded well to some snacks. He reports that his blood sugars are well-controlled at home and no changes were made. He is only on 5 units of insulin per day. - Patient Instructions Diet: Diabetic Diet, GI Soft/Low Residue/Low Fiber Activity: As Tolerated Driving: Do Not Drive (if taking pain pills) Showering/Bathing: May Shower Notify Provider of: Fever, Increased Pain, Nausea and/or Vomiting Other/Special Instructions: 1. You were in the hospital for management of epigastric abdominal pain with nausea. Initially there was some concern that you may have had pancreatitis but I suspect your pain and nausea were caused by diabetic gastroparesis. I have provided an information sheet about gastroparesis. I recommend that you follow the low fiber/low residue diet to help avoid/reduce problems in the future. We have also started you on metoclopramide (Reglan) 3 times per day with meals. This medication will help to speed up the emptying from your stomach and minimize symptoms. 2. Your blood pressure was elevated during the hospital stay and I would encourage you to check in with your primary care physician in approximately one week to ensure that your blood pressure has trended down. 3. Please continue your other medications as previously prescribed. 4. Seek medical attention if you develop fever greater than 101, develop severe pain or have persistent vomiting. - Discharge Plan Prescriptions/Med Rec: HYDROmorphone [Dilaudid] 2 mg PO Q6H PRN #20 tablet PRN Reason: Pain (Severe 7-10) Metoclopramide [Reglan] 5 mg PO TIDAC #90 tablet Home Medications: Home Meds Furosemide 40 mg PO DAILY 04/24/17 [History] Insulin Detemir [Levemir Flextouch] 5 units SUBCUT BEDTIME 04/24/17 [History] Metoprolol Tartrate 1 tab PO BID 04/24/17 [History] Nitroglycerin 1 tab SL ASDIRECTED 04/24/17 [History] Omeprazole 1 tab PO DAILY 04/24/17 [History] Simvastatin [Zocor] 10 mg PO BEDTIME 04/24/17 [History] HYDROmorphone [Dilaudid] 2 mg PO Q6H PRN #20 tablet 04/26/17 [Rx] Metoclopramide [Reglan] 5 mg PO TIDAC #90 tablet 04/26/17 [Rx] Patient Handouts: Metoclopramide tablets, Low-Fiber Diet, Gastroparesis Referrals: PCP,None [Primary Care Provider] - (follow-up with your primary care physician in approximately one week for a blood pressure check and recheck of your abdominal pain and nausea symptoms) - Discharge Summary/Plan Comment DC Time >30 min.: No (25) - Patient Data Vitals - Most Recent: Last Vital Signs Temp 37.1 C 04/26/17 07:12 Pulse 86 04/26/17 09:24 Resp 20 04/26/17 07:12 BP 150/84 H 04/26/17 09:24 Pulse Ox 96 04/26/17 07:12 Weight - Most Recent: 57.153 kg I&O - Last 24 hours: Intake & Output 04/25/17 04/26/17 04/26/17 22:59 06:59 14:59 Intake Total 200 540 Output Total 325 425 300 Balance -125 -425 240 Lab Results - Last 24 hrs: Laboratory Results - last 24 hr 04/26/17 04/26/17 Range/Units 05:00 06:10 Hgb 8.9 L (12.0-15.0) g/dL Sodium 141 (140-148) mmol/L Potassium 4.8 (3.6-5.2) mmol/L Chloride 112 H (100-108) mmol/L Carbon Dioxide 18 L (21-32) mmol/L Anion Gap 15.8 H (5.0-14.0) mmol/L BUN 37 H (7-18) mg/dL Creatinine 3.6 H* (0.8-1.3) mg/dL Est Cr Clr Drug Dosing 17.20 mL/min Estimated GFR (MDRD) 17 L (>60) Glucose 56 L (74-106) mg/dL Calcium 7.9 L (8.5-10.1) mg/dL Med Orders - Current: Current Medications Acetaminophen (Tylenol) 650 mg PO Q4H PRN PRN Reason: Pain (Mild 1-3)/fever Albuterol (Proventil Neb Soln) 2.5 mg NEB Q4H PRN PRN Reason: Shortness Of Breath/wheezing Amlodipine Besylate (Norvasc) 5 mg PO DAILY [facility] Last Admin: 04/26/17 09:22 Dose: 5 mg Dextrose (Glutose 15) 15 gm PO ONETIME PRN PRN Reason: Hypoglycemia Dextrose/Water (Dextrose 50% In Water) 50 ml IV ONETIME PRN PRN Reason: Hypoglycemia Hydromorphone HCl (Dilaudid) 2 mg PO Q3H PRN PRN Reason: Pain Last Admin: 04/26/17 11:07 Dose: 2 mg Hydromorphone HCl (Dilaudid) 0.5 - 1 mg IVPUSH Q2H PRN PRN Reason: Pain (severe 7-10) Last Admin: 04/25/17 18:31 Dose: 1 mg Ciprofloxacin/Dextrose 400 mg/ (Premix) 200 mls @ 200 mls/hr IV Q24H [facility] Last Admin: 04/26/17 09:25 Dose: 200 mls/hr Insulin Aspart (Novolog) 0 unit SUBCUT QIDACANDBED [facility] PRN Reason: Protocol Last Admin: 04/26/17 12:14 Dose: Not Given Lorazepam (Ativan) 0.5 mg IVPUSH Q4H PRN PRN Reason: Nausea Metoclopramide HCl (Reglan) 5 mg PO TIDAC [facility] Last Admin: 04/26/17 12:15 Dose: 5 mg Metoprolol Tartrate (Lopressor) 25 mg PO BID [facility] Last Admin: 04/26/17 09:24 Dose: 25 mg Nitroglycerin (Nitrostat) 0.4 mg SL ASDIRECTED PRN PRN Reason: Chest Pain Ondansetron HCl (Zofran) 4 mg IV Q4H PRN PRN Reason: Nausea/Vomiting Last Admin: 04/26/17 01:10 Dose: 4 mg Pantoprazole Sodium (Protonix) 40 mg PO ACBREAKFAST [facility] Last Admin: 04/26/17 07:27 Dose: 40 mg Simvastatin (Zocor) 10 mg PO BEDTIME [facility] Last Admin: 04/25/17 21:03 Dose: 10 mg Sodium Chloride (Saline Flush) 10 ml FLUSH ASDIRECTED PRN PRN Reason: Keep Vein Open Last Admin: 04/25/17 16:46 Dose: 10 ml Discontinued Medications Hydromorphone HCl (Dilaudid) 0.5 mg IVPUSH ONETIME ONE Stop: 04/24/17 10:47 Last Admin: 04/24/17 12:14 Dose: 0.5 mg Hydromorphone HCl (Dilaudid) 1 mg IVPUSH ONETIME ONE Stop: 04/24/17 12:22 Last Admin: 04/24/17 12:59 Dose: 1 mg Hydromorphone HCl (Dilaudid) 1 mg IVPUSH ONETIME ONE Stop: 04/24/17 13:19 Last Admin: 04/24/17 13:25 Dose: 1 mg Hydromorphone HCl (Dilaudid Corduroy Cutter Operator 15 Mg In Ns 30 Ml) 0 mg IV ASDIRECTED PRN; Protocol PRN Reason: Pain Last Admin: 04/24/17 15:25 Dose: 15 mg Sodium Chloride (Normal Saline) 1,000 mls @ 500 mls/hr IV ASDIRECTED [facility] Last Admin: 04/24/17 12:03 Dose: 500 mls/hr Lactated Ringer's (Ringers, Lactated) 500 mls @ 250 mls/hr IV .BOLUS [facility] Stop: 04/24/17 18:09 Lactated Ringer's (Ringers, Lactated) 1,000 mls @ 125 mls/hr IV ASDIRECTED [facility] Last Admin: 04/25/17 05:27 Dose: 125 mls/hr Dextrose/Lactated Ringer's (Dextrose 5%-Lactated Ringers) 1,000 mls @ 75 mls/ hr IV ASDIRECTED [facility] Last Admin: 04/25/17 10:07 Dose: 75 mls/hr Insulin Detemir (Levemir) 5 unit SUBCUT BEDTIME [facility] Last Admin: 04/25/17 21:02 Dose: 5 units Labetalol HCl (Normodyne) 20 mg IVPUSH NOW ONE PRN Reason: Protocol Stop: 04/24/17 13:27 Last Admin: 04/24/17 13:34 Dose: 20 mg Lorazepam (Ativan) 0.5 mg IVPUSH ONETIME ONE Stop: 04/24/17 13:21 Last Admin: 04/24/17 13:26 Dose: 0.5 mg Naloxone HCl (Narcan) 0.4 mg IVPUSH Q2M PRN PRN Reason: Respiratory Distress Ondansetron HCl (Zofran) 4 mg IVPUSH ONETIME ONE Stop: 04/24/17 10:47 Last Admin: 04/24/17 12:12 Dose: 4 mg Pantoprazole Sodium (Protonix Iv) 40 mg IVPUSH Q24H [facility] Last Admin: 04/24/17 16:22 Dose: 40 mg - Exam Quality Assessment: Denies: Supplemental Oxygen General: Reports: Alert, Oriented, Cooperative, No Acute Distress Neck: Reports: Supple Lungs: Reports: Normal Respiratory Effort GI/Abdominal Exam: Soft, No Distention Extremities: No Pedal Edema Psy/Mental Status: Reports: Alert, Normal Affect *Q Meaningful Use (DIS) - VTE *Q VTE Criteria *Q: - Stroke *Q Stroke Criteria *Q: - AMI *Q AMI Criteria *Q:
== END 2017-04-26 13:43 | disposition home or self-care (01) | DRG 74 ==
LOC: JP.ED 10:14 → JP.MS 12:31
PROVIDERS: ADMIT Hospitalist; ATTEND Internal Medicine
DX: E10.43 Type 1 diabetes mellitus with diabetic autonomic (poly)neuropathy (principal); N18.4 Chronic kidney disease, stage 4 (severe); E10.40 Type 1 diabetes mellitus with diabetic neuropathy, unspecified; E10.21 Type 1 diabetes mellitus with diabetic nephropathy; E10.22 Type 1 diabetes mellitus with diabetic chronic kidney disease; K31.84 Gastroparesis; I12.9 Hypertensive chronic kidney disease with stage 1 through stage 4 chronic kidney disease, or unspecified chronic kidney disease; Z79.4 Long term (current) use of insulin; R10.13 Epigastric pain; Z88.6 Allergy status to analgesic agent; Z88.8 Allergy status to other drugs, medicaments and biological substances
CPT/HCPCS: 36415; 74022; 74022-26; 74176; 74176-26; 80048; 80053; 81001; 82150; 82962; 83690; 83735; 84484; 85018; 85025; 86140; 94762; 96374; 96375; 99285-25; A9270-GY; C9113; J0744; J1170; J2060; J2405; J7040; J7042; J7050; J7120

== ENCOUNTER 2017-11-09 10:19 | Emergency (ER) | payer MEDICAID ==
[2017-11-09] MEDS ORDERED: HYDROmorphone 0.5 MG/0.5 ML Syringe IM ONE (10:47)
--- NOTE | 2017-11-09 10:51 | EDM.PDOC ---
ED HPI GENERAL MEDICAL PROBLEM - General Chief Complaint: General Stated Complaint: RIGHT ARM IS SWELLING Time Seen by Provider: 11/09/17 10:30 Source of Information: Reports: Patient, Family History Limitations: Reports: No Limitations - History of Present Illness INITIAL COMMENTS - FREE TEXT/NARRATIVE: 62-year-old male came in for dialysis this morning but has a hematoma in his right arm and he wanted something for pain. When they didn't offer anything for pain, he refused to go when and came over the emergency room. I did discuss his condition with dialysis, they felt he should be able to still get his dialysis this morning and there computer hardware developer is present to examine him if needed. Onset: Gradual (Over the past 48 hours since his last dialysis) Severity: Moderate Associated Symptoms: Reports: Loss of Appetite, Nausea/Vomiting (Patient has had several weeks of nausea and intermittent vomiting with eating.). Denies: Fever/Chills Epigastric Pain Score (Numeric/FACES): 9 - Related Data Allergies Allergy/AdvReac Type Severity Reaction Status Date / Time lisinopril Allergy Cannot Verified 04/24/17 12:32 Remember Nqrbtfz-Cjs-Odc Reductase Allergy Cannot Verified 04/24/17 14:39 Inhibitor Remember ibuprofen AdvReac Stomach Verified 04/24/17 10:28 Upset Home Meds: Home Meds Furosemide 40 mg PO DAILY 04/24/17 [History] Insulin Detemir [Levemir Flextouch] 5 units SUBCUT BEDTIME 04/24/17 [History] Metoprolol Tartrate 1 tab PO BID 04/24/17 [History] Nitroglycerin 1 tab SL ASDIRECTED 04/24/17 [History] Omeprazole 1 tab PO DAILY 04/24/17 [History] Simvastatin [Zocor] 10 mg PO BEDTIME 04/24/17 [History] HYDROmorphone [Dilaudid] 2 mg PO Q6H PRN #20 tablet 04/26/17 [Rx] Metoclopramide [Reglan] 5 mg PO TIDAC #90 tablet 04/26/17 [Rx] Acetaminophen/HYDROcodone [[place] 325-5 MG] 5 - 325 mg PO Q4HR PRN 11/09/17 [ History] B Complex W-C No.20/Folic Acid [Nephrocaps Softgel] 1 tab PO DAILY 11/09/17 [ History] Calcium Acetate [PhosLo] 1 tab PO TID 11/09/17 [History] Cholecalciferol (Vitamin D3) [Vitamin D3] 5,000 unit PO DAILY 11/09/17 [History] Gabapentin [Neurontin] 100 mg PO BID 11/09/17 [History] Metoclopramide HCl 5 mg PO TID 11/09/17 [History] Pantoprazole Sodium [Protonix] 40 mg PO DAILY 11/09/17 [History] amLODIPine Besylate [Amlodipine Besylate] 5 mg PO DAILY 11/09/17 [History] hydrALAZINE HCl [Hydralazine HCl] 100 mg PO TID 11/09/17 [History] Past Medical History Cardiovascular History: Reports: High Cholesterol, Hypertension Gastrointestinal History: Reports: Gastritis Genitourinary History: Reports: Chronic Renal Insuffiency, Other (See Below) Other Genitourinary History: kidneys "work at 14%" Neurological History: Reports: Neuropathy, Diabetic Psychiatric History: Reports: Depression Endocrine/Metabolic History: Reports: Diabetes, Type I - Infectious Disease History Infectious Disease History: Reports: Chicken Pox, Measles, Mumps - Past Surgical History GI Surgical History: Reports: Cholecystectomy Social & Family History - Tobacco Use Smoking Status *Q: Current Every Day Smoker Years of Tobacco use: 30 Packs/Tins Daily: 0.5 - Caffeine Use Caffeine Use: Reports: Coffee - Recreational Drug Use Recreational Drug Use: Yes Drug Use in Last 12 Months: Yes Recreational Drug Type: Reports: Marijuana/Hashish Recreational Drug Use Frequency: Daily ED ROS GENERAL - Review of Systems Review Of Systems: See Below Constitutional: Reports: Malaise. Denies: Fever, Chills Respiratory: Denies: Shortness of Breath Cardiovascular: Denies: Chest Pain GI/Abdominal: Reports: Nausea, Vomiting Skin: Denies: Bruising ED EXAM, GENERAL - Physical Exam Exam: See Below Exam Limited By: No Limitations General Appearance: Alert, No Apparent Distress Respiratory/Chest: No Respiratory Distress, Lungs Clear Cardiovascular: Regular Rate, Rhythm Extremities: Other (There is significant swelling, firmness from an underlying hematoma in the right bicep area.) Course - Vital Signs Last Recorded V/S: Last Vital Signs Temp 95.6 F 11/09/17 10:58 Pulse 99 11/09/17 10:58 Resp 18 11/09/17 10:58 BP 78/59 L 11/09/17 10:58 Pulse Ox 99 11/09/17 10:58 - Orders/Labs/Meds Meds: Medications Discontinued Medications Generic Name Dose Route Start Last Admin Trade Name Thalia PRN Reason Stop Dose Admin Hydromorphone HCl 0.5 mg 11/09/17 10:47 11/09/17 10:51 Dilaudid IM 11/09/17 10:48 0.5 mg ONETIME ONE Administration - Re-Assessments/Exams Free Text/Narrative Re-Assessment/Exam: 11/09/17 10:49 Discussed his case with dialysis and they insisted if he comes back they can finish his run as needed and have their computer hardware developer see the arm. He was given 0.5 mg of IM Dilaudid for pain control prior to being discharged. He is to recheck next week for his ongoing stomach problems. Departure - Departure Time of Disposition: 10:58 Disposition: Home, Self-Care 01 Condition: Good Clinical Impression: Traumatic hematoma of upper arm Qualifiers: Encounter type: initial encounter Laterality: right Qualified Code(s): S40.021A - Contusion of right upper arm, initial encounter - Discharge Information Instructions: Hematoma, [id number] Referrals: PCP,None [Primary Care Provider] - Forms: ED Department Discharge Care Plan Goals: Return to dialysis for your normal dialysis treatment. Follow recommendations of your computer hardware developer, and recheck with your regular doctor next week regarding your ongoing stomach issues.
== END 2017-11-09 11:00 | disposition home or self-care (01) ==
LOC: JP.ED 10:19
DX: S40.021A Contusion of right upper arm, initial encounter (principal); E10.22 Type 1 diabetes mellitus with diabetic chronic kidney disease; E10.40 Type 1 diabetes mellitus with diabetic neuropathy, unspecified; I12.9 Hypertensive chronic kidney disease with stage 1 through stage 4 chronic kidney disease, or unspecified chronic kidney disease; N18.9 Chronic kidney disease, unspecified; F17.210 Nicotine dependence, cigarettes, uncomplicated; Z88.8 Allergy status to other drugs, medicaments and biological substances; Z79.899 Other long term (current) drug therapy; X58.XXXA Exposure to other specified factors, initial encounter
CPT/HCPCS: 96372; 99283; J1170

== ENCOUNTER 2017-11-13 07:28 | Day surgery (SDC) | payer MEDICAID ==
[~2017-11-13 07:28] MED LIST: Bupivacaine 0.5% 50 ML MDV ONE; Lidocaine 1% with EPINEPHrine 1:100,000 50 ML MDV ONE
[2017-11-13] MEDS ORDERED: Dextrose 5%-Lactated Ringers 1,000 ML IV SCH (08:00)
[2017-11-13] MEDS ORDERED: fentaNYL 100 MCG/2 ML SDV ONE (08:56)
[2017-11-13] MEDS ORDERED: Propofol 200 MG/20 ML SDV ONE (08:56)
--- NOTE | 2017-11-21 14:04 | OR ---
DATE OF PROCEDURE: 11/13/2017 PREOPERATIVE DIAGNOSIS: Status post external dialysis catheter. POSTOPERATIVE DIAGNOSIS: Status post external dialysis catheter. OPERATIVE PROCEDURE: Removal of external dialysis catheter placed in the right internal jugular location ([id number]). ANESTHESIA: Local plus IV sedation. INDICATION FOR PROCEDURE: This is a 62-year-old male, maintained with hemodialysis, now has a functioning internal shunt and is to have removal of the external hemodialysis catheter. Potential risks including bleeding and infection were reviewed and the patient wishes to proceed. DETAILS OF PROCEDURE: The patient was taken to the operating room and placed in supine position. IV sedation was administered, after which the area around the catheter and the upper chest and neck areas were prepped and draped. The point where the catheter exited the skin was anesthetized with 1% lidocaine and a small incision was made, which then allowed traction of the catheter access to the fibrous cuff which was dissected away from the surrounding soft tissues. Once this was freed up, the catheter was brought back 2 to 3 cm. A pursestring stitch of 3-0 Vicryl stitch was placed around the catheter exit site. Once this had been placed, catheter was withdrawn to prevent air embolism. This was then tied and dressing applied. A single stitch of 5-0 catgut was then placed to partially close the wound, which was otherwise left open for secondary closure. Dressing was applied. The patient was taken to the recovery room in satisfactory condition. Kin Nicholson MD /[id number]
== END 2017-11-13 10:40 | disposition home or self-care (01) ==
LOC: JP.SDS 07:28
PROVIDERS: ATTEND Surgery
DX: Z49.01 Encounter for fitting and adjustment of extracorporeal dialysis catheter (principal); I12.9 Hypertensive chronic kidney disease with stage 1 through stage 4 chronic kidney disease, or unspecified chronic kidney disease; E11.22 Type 2 diabetes mellitus with diabetic chronic kidney disease; N18.9 Chronic kidney disease, unspecified; E11.43 Type 2 diabetes mellitus with diabetic autonomic (poly)neuropathy; K31.84 Gastroparesis; K21.9 Gastro-esophageal reflux disease without esophagitis; Z79.4 Long term (current) use of insulin
CPT/HCPCS: 36589; J2704; J3010; J3490; J7042

== ENCOUNTER 2018-05-27 11:39 | Emergency (ER) | payer MEDICAID ==
[2018-05-27] MEDS ORDERED: HYDROmorphone 1 MG/ML Syringe IVPUSH ONE (11:53)
--- NOTE | 2018-05-27 11:56 | EDM.PDOC ---
ED HPI GENERAL MEDICAL PROBLEM - General Chief Complaint: Abdominal Pain Stated Complaint: [facility] Time Seen by Provider: 05/27/18 11:51 Source of Information: Reports: Patient, EMS, RN Notes Reviewed History Limitations: Reports: No Limitations - History of Present Illness INITIAL COMMENTS - FREE TEXT/NARRATIVE: 62-year-old gentleman presents to the emergency department today via EMS services for sudden onset epigastric pain, he has a known history of end-stage renal disease did report to the dialysis center today for dialysis however he was in such excruciating pain that he was unable to complete his run. He states this pain started last night and has progressively gotten worse, pain is so intense takes his breath away he's unable to find a comfortable position Abdominal Pain Score (Numeric/FACES): 10 - Related Data Allergies Allergy/AdvReac Type Severity Reaction Status Date / Time lisinopril Allergy Cannot Verified 11/13/17 08:01 Remember Qycbyyd-Aca-Fcm Reductase Allergy Cannot Verified 11/13/17 08:01 Inhibitor Remember ibuprofen AdvReac Stomach Verified 11/13/17 08:01 Upset Home Meds: Home Meds Furosemide 40 mg PO DAILY 04/24/17 [History] Nitroglycerin 1 tab SL ASDIRECTED 04/24/17 [History] Omeprazole 1 tab PO DAILY 04/24/17 [History] Metoclopramide [Reglan] 5 mg PO TIDAC #90 tablet 04/26/17 [Rx] Acetaminophen/HYDROcodone [[place] 325-5 MG] 5 - 325 mg PO Q4HR PRN 11/09/17 [ History] Calcium Acetate [PhosLo] 1 tab PO TID 11/09/17 [History] Gabapentin [Neurontin] 100 mg PO BID 11/09/17 [History] Pantoprazole Sodium [Protonix] 40 mg PO DAILY 11/09/17 [History] amLODIPine Besylate [Amlodipine Besylate] 5 mg PO DAILY 11/09/17 [History] Cholecalciferol (Vitamin D3) [Vitamin D3] 5,000 unit PO DAILY 05/27/18 [History] Cholestyramine (With Sugar) [Questran Powder] 4 g PO TID 05/27/18 [History] Folic Acid/Vit B Complex and C [Dialyvite] 1 tab PO DAILY 05/27/18 [History] Gabapentin [Neurontin] 100 mg PO BID 05/27/18 [History] Gabapentin [Neurontin] 200 mg PO BEDTIME 05/27/18 [History] Insulin Detemir [Levemir] 5 unit SUBCUT BEDTIME 05/27/18 [History] Ursodiol [Actigal] 300 mg PO BID 05/27/18 [History] hydrALAZINE [Apresoline] 100 mg PO TID 05/27/18 [History] Past Medical History HEENT History: Reports: Impaired Vision Cardiovascular History: Reports: High Cholesterol, Hypertension Gastrointestinal History: Reports: Gastritis Genitourinary History: Reports: Chronic Renal Insuffiency, Dialysis, Other (See Below) Other Genitourinary History: kidneys "work at 14%" Musculoskeletal History: Reports: Fracture, Osteoarthritis Neurological History: Reports: Concussion, Neuropathy, Diabetic Psychiatric History: Reports: Addiction, Depression Endocrine/Metabolic History: Reports: Diabetes, Type I - Infectious Disease History Infectious Disease History: Reports: Chicken Pox, Measles, Mumps - Past Surgical History HEENT Surgical History: Reports: None Cardiovascular Surgical History: Reports: None GI Surgical History: Reports: Cholecystectomy, Colonoscopy, EGD Male Surgical History: Reports: None Endocrine Surgical History: Reports: None Neurological Surgical History: Reports: None Musculoskeletal Surgical History: Reports: Shoulder Surgery Social & Family History - Caffeine Use Caffeine Use: Reports: Coffee ED ROS GENERAL - Review of Systems Review Of Systems: See Below Constitutional: Reports: No Symptoms HEENT: Reports: No Symptoms Respiratory: Reports: Shortness of Breath Cardiovascular: Reports: No Symptoms GI/Abdominal: Reports: Abdominal Pain. Denies: Nausea, Vomiting : Reports: No Symptoms Musculoskeletal: Reports: No Symptoms Skin: Reports: No Symptoms ED EXAM, GI/ABD - Physical Exam Exam: See Below Exam Limited By: No Limitations General Appearance: Alert, Moderate Distress Head: Atraumatic, Normocephalic Neck: Normal Inspection, Supple, Non-Tender, Full Range of Motion Respiratory/Chest: No Respiratory Distress, Lungs Clear, Normal Breath Sounds, No Accessory Muscle Use, Chest Non-Tender Cardiovascular: Regular Rate, Rhythm, No Murmur GI/Abdominal Exam: No Organomegaly, No Distention, Tender (Epigastric region) Extremities: No Pedal Edema Course - Vital Signs Last Recorded V/S: Last Vital Signs Temp 96 F 05/27/18 11:54 Pulse 80 05/27/18 14:41 Resp 18 05/27/18 14:41 BP 218/80 H 05/27/18 14:41 Pulse Ox 98 05/27/18 14:41 - Orders/Labs/Meds Orders: Active Orders 24 hr Category Date Time Status Cardiac Monitoring [RC] .As Directed Care 05/27/18 11:52 Active EKG Documentation Completion [RC] ASDIRECTED Care 05/27/18 11:53 Active Peripheral IV Care [RC] . DIRECTED Care 05/27/18 13:56 Active Iopamidol [Isovue-300 (61%)] Med 05/27/18 12:30 Active 100 ml IV . DIRECTED Lactated Ringers [Ringers, Lactated] 1,000 ml Med 05/27/18 13:15 Active IV ASDIRECTED Sodium Chloride 0.9% [Saline Flush] Med 05/27/18 13:56 Active 10 ml FLUSH ASDIRECTED PRN Peripheral IV Insertion Adult [OM.PC] Urgent Oth 05/27/18 13:56 Ordered EKG 12 Lead [EK] Stat Ther 05/27/18 11:52 Ordered Medication Orders Lactated Ringer's (Ringers, Lactated) 1,000 mls @ 0 mls/hr IV ASDIRECTED YANN Last Admin: 05/27/18 14:14 Dose: 25 mls/hr Iopamidol (Isovue-300 (61%)) 100 ml IV . DIRECTED [facility] Last Admin: 05/27/18 13:05 Dose: 100 ml Sodium Chloride (Saline Flush) 10 ml FLUSH ASDIRECTED PRN PRN Reason: Keep Vein Open Labs: Laboratory Tests 05/27/18 05/27/18 05/27/18 Range/Units 11:59 11:59 11:59 WBC 7.0 (4.5-11.0) K/uL RBC 4.02 L (4.30-5.90) M/uL Hgb 12.9 D (12.0-15.0) g/dL Hct 40.1 (40.0-54.0) % MCV 100 H (80-98) fL MCH 32 H (27-31) pg MCHC 32 (32-36) % Plt Count 122 L (150-400) K/uL Neut % (Auto) 66 (36-66) % Lymph % (Auto) 23 L (24-44) % [place] % (Auto) 7 H (2-6) % Eos % (Auto) 3 (2-4) % Baso % (Auto) 2 H (0-1) % Sodium 134 L (140-148) mmol/L Potassium 4.7 (3.6-5.2) mmol/L Chloride 96 L (100-108) mmol/L Carbon Dioxide 25 (21-32) mmol/L Anion Gap 17.7 H (5.0-14.0) mmol/L BUN 68 H D (7-18) mg/dL Creatinine 6.5 H* D (0.8-1.3) mg/dL Est Cr Clr Drug Dosing TNP Estimated GFR (MDRD) 9 L (>60) Glucose 172 H (74-106) mg/dL Lactic Acid 1.6 (0.4-2.0) mmol/L Calcium 9.0 (8.5-10.1) mg/dL Total Bilirubin 0.6 (0.2-1.0) mg/dL AST 18 (15-37) U/L ALT 17 (12-78) U/L Alkaline Phosphatase 79 (46-116) U/L Troponin I < 0.017 (0.000-0.056) ng/mL Total Protein 8.1 (6.4-8.2) g/dL Albumin 3.8 (3.4-5.0) g/dL Globulin 4.3 H (2.3-3.5) g/dL Albumin/Globulin Ratio 0.9 L (1.2-2.2) Meds: Medications Generic Name Dose Route Start Last Admin Trade Name Freq PRN Reason Stop Dose Admin Lactated Ringer's 1,000 mls @ 0 mls/hr 05/27/18 13:15 05/27/18 14:14 Ringers, Lactated IV 25 mls/hr ASDIRECTED YANN Administration KVO Iopamidol 100 ml 05/27/18 12:30 05/27/18 13:05 Isovue-300 (61%) IV 100 ml . DIRECTED YANN Administration Sodium Chloride 10 ml 05/27/18 13:56 Saline Flush FLUSH ASDIRECTED PRN Keep Vein Open Discontinued Medications Generic Name Dose Route Start Last Admin Trade Name Freq PRN Reason Stop Dose Admin Fentanyl 100 mcg 05/27/18 12:58 05/27/18 13:18 Sublimaze IVPUSH 05/27/18 12:59 100 mcg ONETIME ONE Administration Fentanyl 100 mcg 05/27/18 14:39 05/27/18 14:44 Sublimaze IVPUSH 05/27/18 14:40 100 mcg ONETIME ONE Administration Hydromorphone HCl 1 mg 05/27/18 11:53 05/27/18 11:58 Dilaudid IVPUSH 05/27/18 11:54 1 mg ONETIME ONE Administration Sodium Chloride 100 mls @ 3 mls/sec 05/27/18 12:20 Normal Saline IV 05/27/18 12:21 ONETIME ONE Ketamine HCl 10 mg 05/27/18 12:59 05/27/18 13:25 Ketalar IV 05/27/18 13:00 10 mg ONETIME ONE Administration Ketamine HCl 10 mg 05/27/18 14:39 05/27/18 14:48 Ketalar IV 05/27/18 14:40 10 mg ONETIME ONE Administration Sodium Chloride 10 ml 05/27/18 12:20 05/27/18 13:05 Saline Flush FLUSH 05/27/18 12:21 10 ml ONETIME ONE Administration Departure - Departure Time of Disposition: 14:52 Disposition: DC/Tfer to Acute Hospital 02 Condition: Poor Clinical Impression: GI bleed Qualifiers: GI bleed type/associated pathology: unspecified gastrointestinal hemorrhage type Qualified Code(s): K92.2 - Gastrointestinal hemorrhage, unspecified - Discharge Information Referrals: PCP,None [Primary Care Provider] - Forms: ED Department Discharge - My Orders Last 24 Hours: My Active Orders 05/27/18 11:52 Cardiac Monitoring [RC] .As Directed EKG 12 Lead [EK] Stat 05/27/18 11:53 EKG Documentation Completion [RC] ASDIRECTED 05/27/18 12:30 Iopamidol [Isovue-300 (61%)] 100 ml IV . DIRECTED 05/27/18 13:15 Lactated Ringers [Ringers, Lactated] 1,000 ml IV ASDIRECTED 05/27/18 13:56 Peripheral IV Care [RC] . DIRECTED Sodium Chloride 0.9% [Saline Flush] 10 ml FLUSH ASDIRECTED PRN Peripheral IV Insertion Adult [OM.PC] Urgent - Assessment/Plan Last 24 Hours: My Active Orders 05/27/18 11:52 Cardiac Monitoring [RC] .As Directed EKG 12 Lead [EK] Stat 05/27/18 11:53 EKG Documentation Completion [RC] ASDIRECTED 05/27/18 12:30 Iopamidol [Isovue-300 (61%)] 100 ml IV . DIRECTED 05/27/18 13:15 Lactated Ringers [Ringers, Lactated] 1,000 ml IV ASDIRECTED 05/27/18 13:56 Peripheral IV Care [RC] . DIRECTED Sodium Chloride 0.9% [Saline Flush] 10 ml FLUSH ASDIRECTED PRN Peripheral IV Insertion Adult [OM.PC] Urgent Plan: Assessment Acuity = acute Site and laterality = GI bleed complicated patient with known history of end- stage renal disease on dialysis. He is me thank you Etiology = suspicious for upper source Manifestations = epigastric pain Location of injury = Home Lab values = hemoglobin stable at 12.9, creatinine elevated 6.5 consistent with end-stage renal disease G5 D troponin is negative CT scan the abdomen and pelvis shows no acute process, chest x-ray no acute process per radiology EKG demonstrates sinus rhythm there is no ST changes or depression, he was positive occult stool Plan Called discussed case with Dr. Gomes hospitalist complex commercial litigation paralegal at [facility] [id number] kindly accepted the patient in transport he'll be transported via EMS ground This note was dictated using inDinero voice recognition software please call with any questions on syntax or grammar.
[2018-05-27] MEDS ORDERED: Sodium Chloride 0.9% 10 ML Syringe FLUSH ONE (12:20)
[2018-05-27] MEDS ORDERED: Sodium Chloride 0.9% 100 ML IV ONE (12:20)
[2018-05-27] MEDS ORDERED: Iopamidol 612 MG/ML 100 ML Bottle IV SCH (12:30)
[2018-05-27] MEDS ORDERED: fentaNYL 100 MCG/2 ML SDV IVPUSH ONE ×2 (12:58→14:39)
[2018-05-27] MEDS ORDERED: Ketamine 500 MG/5 ML MDV IV ONE ×2 (12:59→14:39)
[2018-05-27] MEDS ORDERED: Lactated Ringers 1,000 ML IV SCH (13:15)
--- NOTE | 2018-05-27 13:28 | CRLCT ---
INDICATION: Epigastric pain. COMPARISON: None available TECHNIQUE: CT examination of the abdomen and pelvis was performed with the uneventful intravenous administration of 100 cc of Isovue-300 while 3 mm thick axial sections were obtained from the lung bases through the pubic symphysis. Oral contrast was not administered. Please note that all CT scans at this facility use dose modulation, iterative reconstruction, and/or weight-based dosing when appropriate to reduce radiation dose to as low as reasonably achievable. FINDINGS: In the abdomen, the liver is seem to have mild intrahepatic biliary ductal dilatation. This is associated with post cholecystectomy status, with surgical clips again seen in the gallbladder fossa and stable mild dilatation of the common bile duct which measures 7 millimeters in caliber. There is no sign of any hepatic mass. The liver remains top-normal in size, measuring 18.4 centimeters in length. It continues to reach the level of the superior iliac crest. The pancreas and adrenals are normal in appearance. The spleen contains multiple small cysts, probably of no clinical concern. The largest is 0.8 centimeters in diameter. These are unchanged in appearance. The spleen is normal in size. A few tiny nonobstructive calculi are unchanged in appearance in the upper and lower poles of the left kidney. There is no sign of any renal calculi on the right. There is no sign of hydronephrosis, hydroureter, or ureteral calculi. The moderately calcified abdominal aorta is normal in caliber with no sign of dilatation. There is no sign of retroperitoneal mass or adenopathy. The stomach, loops of small bowel, and colon in the abdomen are normal in appearance. In the pelvis, the retrocecal appendix is normal in appearance with no sign of inflammatory process.. The loops of small bowel and colon in the pelvis are normal in appearance. The prostate remains top normal in size, measuring 4.1 centimeters in diameter. And is otherwise normal in appearance. The urinary bladder is normal in appearance. There is no sign of pelvic or inguinal mass or adenopathy. The lung bases are clear. The osseous structures are normal in appearance for the patient`s age. IMPRESSION: Nothing seen that would explain the patient`s epigastric pain. Normal appearance of the stomach and proximal small bowel. Normal appearance of the pancreas. CT of the abdomen shows stable changes of cholecystectomy with mild dilatation of the common bile duct. There is mild intrahepatic biliary ductal dilatation that can be seen on today`s study which is performed with IV contrast. The previous study was not performed with IV contrast. Stable appearance of tiny nonobstructive calculi in the upper and lower poles of the left kidney. CT of the pelvis shows no change in mild enlargement of the prostate. Please note that all CT scans at this facility use dose modulation, iterative reconstruction, and/or weight-based dosing when appropriate to reduce radiation dose to as low as reasonably achievable. Dictated by Justin Arguelles MD @ May 27 2018 1:10PM Signed by Dr. Justin Arguelles @ May 27 2018 1:26PM
[2018-05-27] MEDS ORDERED: Sodium Chloride 0.9% 10 ML Syringe FLUSH PRN (13:56)
--- NOTE | 2018-05-27 14:21 | CRLCR ---
INDICATION: Epigastric pain. FINDINGS: Two PA chest x-rays and a single lateral chest x-ray show a normal cardiac silhouette. The lungs show no focal pulmonary opacities. Sharp pleural margins. No pneumothorax. IMPRESSION: No evidence of acute pulmonary abnormalities. Dictated by Jose Johnson MD @ 05/27/2018 2:18:49 PM Dictated by: Jose Johnson MD @ 05/27/2018 14:19:11 (Electronically Signed)
[2018-05-27] MEDS ORDERED: Pantoprazole 40 MG Vial IVPUSH ONE (14:53)
== END 2018-05-27 15:49 ==
LOC: JP.ED 11:39
DX: K92.2 Gastrointestinal hemorrhage, unspecified (principal); I12.0 Hypertensive chronic kidney disease with stage 5 chronic kidney disease or end stage renal disease; N18.6 End stage renal disease; E10.22 Type 1 diabetes mellitus with diabetic chronic kidney disease; Z99.2 Dependence on renal dialysis; M19.90 Unspecified osteoarthritis, unspecified site; Z90.49 Acquired absence of other specified parts of digestive tract; E10.40 Type 1 diabetes mellitus with diabetic neuropathy, unspecified; Z79.899 Other long term (current) drug therapy; Z88.6 Allergy status to analgesic agent; Z88.8 Allergy status to other drugs, medicaments and biological substances
CPT/HCPCS: 36415; 71046; 74177; 80053; 82272; 83605; 84484; 85025; 93005; 96361; 96374; 96375; 96376; 99285; C9113; J1170; J3010; Q9967

== ENCOUNTER 2018-08-20 16:03 | Emergency (ER) | payer MEDICAID ==
--- NOTE | 2018-08-20 17:09 | EDM.PDOC ---
ED HPI GENERAL MEDICAL PROBLEM - General Chief Complaint: Skin Complaint Stated Complaint: VIA NORTH INFECTION IN BOTH LEGS Time Seen by Provider: 08/20/18 16:47 Source of Information: Reports: Patient, RN Notes Reviewed History Limitations: Reports: No Limitations - History of Present Illness INITIAL COMMENTS - FREE TEXT/NARRATIVE: 63-year-old gentleman presents emergency department today sent from home via EMS services by homecare nursing concern about chronic wound infection. I was able to discuss case with the wound care clinic who has worked with him in the past especially when [facility] in [facility] they did provide me some supplies and were kind enough to give him an appointment on August 22 Bilateral Lower Leg Pain Score (Numeric/FACES): 8 - Related Data Allergies Allergy/AdvReac Type Severity Reaction Status Date / Time lisinopril Allergy Cannot Verified 08/20/18 16:32 Remember Oidpcgt-Iqq-Afw Reductase Allergy Cannot Verified 08/20/18 16:32 Inhibitor Remember ibuprofen AdvReac Stomach Verified 08/20/18 16:32 Upset Home Meds: Home Meds Furosemide 40 mg PO DAILY 04/24/17 [History] Nitroglycerin 1 tab SL ASDIRECTED 04/24/17 [History] Omeprazole 1 tab PO DAILY 04/24/17 [History] Metoclopramide [Reglan] 5 mg PO TIDAC #90 tablet 04/26/17 [Rx] Acetaminophen/HYDROcodone [[place] 325-5 MG] 5 - 325 mg PO Q4HR PRN 11/09/17 [ History] Calcium Acetate [PhosLo] 1 tab PO TID 11/09/17 [History] Gabapentin [Neurontin] 100 mg PO BID 11/09/17 [History] Pantoprazole Sodium [Protonix] 40 mg PO DAILY 11/09/17 [History] amLODIPine Besylate [Amlodipine Besylate] 5 mg PO DAILY 11/09/17 [History] Cholecalciferol (Vitamin D3) [Vitamin D3] 5,000 unit PO DAILY 05/27/18 [History] Cholestyramine (With Sugar) [Questran Powder] 4 g PO TID 05/27/18 [History] Folic Acid/Vit B Complex and C [Dialyvite] 1 tab PO DAILY 05/27/18 [History] Gabapentin [Neurontin] 100 mg PO BID 05/27/18 [History] Gabapentin [Neurontin] 200 mg PO BEDTIME 05/27/18 [History] Insulin Detemir [Levemir] 5 unit SUBCUT BEDTIME 05/27/18 [History] Ursodiol [Actigal] 300 mg PO BID 05/27/18 [History] hydrALAZINE [Apresoline] 100 mg PO TID 05/27/18 [History] Past Medical History HEENT History: Reports: Impaired Vision Cardiovascular History: Reports: High Cholesterol, Hypertension Gastrointestinal History: Reports: Gastritis Genitourinary History: Reports: Chronic Renal Insuffiency, Dialysis, Other (See Below) Other Genitourinary History: kidneys "work at 14%" Musculoskeletal History: Reports: Fracture, Osteoarthritis Neurological History: Reports: Concussion, Neuropathy, Diabetic Psychiatric History: Reports: Addiction, Depression Endocrine/Metabolic History: Reports: Diabetes, Type II - Infectious Disease History Infectious Disease History: Reports: Chicken Pox, Measles, Mumps - Past Surgical History HEENT Surgical History: Reports: None Cardiovascular Surgical History: Reports: None GI Surgical History: Reports: Cholecystectomy, Colonoscopy, EGD Male Surgical History: Reports: None Endocrine Surgical History: Reports: None Neurological Surgical History: Reports: None Musculoskeletal Surgical History: Reports: Shoulder Surgery Social & Family History - Tobacco Use Smoking Status *Q: Current Every Day Smoker Years of Tobacco use: 50 Packs/Tins Daily: 0.5 - Caffeine Use Caffeine Use: Reports: Coffee - Recreational Drug Use Recreational Drug Use: Yes Recreational Drug Type: Reports: Marijuana/Hashish ED ROS GENERAL - Review of Systems Review Of Systems: See Below Constitutional: Reports: No Symptoms Skin: Reports: Wound ED EXAM, SKIN/RASH Exam: See Below Text/Narrative:: Examination of the lower extremities he does have chronic wounds consistent with venous stasis-type ulcers variety stages shards are formed as well as open ulcers with scant amount of exudative material presents mild erythema is noted around the areas pedal pulses +1 bilaterally Exam Limited By: No Limitations General Appearance: Alert, WD/WN, No Apparent Distress Respiratory/Chest: No Respiratory Distress Course - Vital Signs Last Recorded V/S: Last Vital Signs Temp 96.9 F 08/20/18 16:23 Pulse 78 08/20/18 16:23 Resp 13 08/20/18 16:23 BP 102/44 L 08/20/18 16:23 Pulse Ox 94 L 08/20/18 16:23 Departure - Departure Time of Disposition: 17:08 Disposition: Home, Self-Care 01 Condition: Fair Clinical Impression: Venous stasis ulcer Qualifiers: Venous stasis ulcer site: other part of lower leg Varicose vein presence: without varicose veins Laterality: unspecified laterality Non-pressure ulcer stage: with fat layer exposed Qualified Code(s): I87.2 - Venous insufficiency ( chronic) (peripheral); L97.802 - Non-pressure chronic ulcer of other part of unspecified lower leg with fat layer exposed - Discharge Information Referrals: PCP,None [Primary Care Provider] - Additional Instructions: Leave dressings on, [facility] August 22 at 120 in [place] - Assessment/Plan Plan: Assessment Acuity = chronic Site and laterality = venous stasis ulcers Etiology = suspicious for vascular insufficiency Manifestations = none Location of injury = Home Lab values = none Plan Wound care did provide Mepilex AG dressings these were provided to nursing staff will dress the wounds he does have an appointment on August 22 at 120 in the afternoon This note was dictated using [employer] voice recognition software please call with any questions on syntax or grammar.
== END 2018-08-20 18:20 | disposition home or self-care (01) ==
LOC: JP.ED 16:03
DX: I87.2 Venous insufficiency (chronic) (peripheral) (principal); L97.812 Non-pressure chronic ulcer of other part of right lower leg with fat layer exposed; L97.822 Non-pressure chronic ulcer of other part of left lower leg with fat layer exposed; I12.0 Hypertensive chronic kidney disease with stage 5 chronic kidney disease or end stage renal disease; N18.6 End stage renal disease; E11.22 Type 2 diabetes mellitus with diabetic chronic kidney disease; E11.40 Type 2 diabetes mellitus with diabetic neuropathy, unspecified; E78.00 Pure hypercholesterolemia, unspecified; F17.210 Nicotine dependence, cigarettes, uncomplicated; Z79.899 Other long term (current) drug therapy; Z88.8 Allergy status to other drugs, medicaments and biological substances; Z79.4 Long term (current) use of insulin; Z99.2 Dependence on renal dialysis
CPT/HCPCS: 99283